=== PATIENT | male | born 1945 | race Caucasian/White ===

== ENCOUNTER 2021-03-11 19:34 | Emergency (ER) | payer MEDICARE ==
[~2021-03-11 19:34] MED LIST: NORCO 5-325 TA1 EACH PO
[2021-03-11] MEDS ORDERED: NEURONTIN300 MG PO (21:45)
== END 2021-03-11 22:22 | disposition home or self-care (01) ==
LOC: ER1 19:34
DX: N47.1 Phimosis (principal); Z72.3 Lack of physical exercise; E10.9 Type 1 diabetes mellitus without complications
CPT/HCPCS: 71045; 93005; 99283